=== PATIENT | female | born 1940 | race Caucasian/White ===

== ENCOUNTER 2018-07-23 22:14 | Emergency (ER) | payer OTHER, MEDICAID ==
[~2018-07-23] VITALS: Ht 149.9 cm; Wt 40.8 kg
--- NOTE | 2018-07-23 22:16 | NUR ---
PT BIBRA FROM HOME C/O LOWER BACK PAIN AND POSSIBLE UNWITNESSED SYNCOPE. -TRAUMA. BS 135, PER EMS. NAD NOTED. RESP EVEN AND UNLABORED. PT ON MONITOR IN BED 8. WILL CONTINUE TO MONITOR.
[2018-07-23] MEDS ORDERED: IV NS 0.9% 1,000 ML BAG IV ONE (22:30)
--- NOTE | 2018-07-23 22:30 | NUR ---
PHLEB AT BEDSIDE FOR LAB DRAW
--- NOTE | 2018-07-23 22:33 | NUR ---
TECH AT BEDSIDE FOR EKG
[2018-07-23 22:45] LABS: BASOPHILS % (AUTO) 0.2 % (0.0-2.0); EOSINOPHILS % (AUTO) 0.1 % (0.0-6.0); HEMATOCRIT 43 % (33-45); HEMOGLOBIN 14.2 g/dL (11.5-14.8); LYMPHOCYTES # (AUTO) 3.5 /CMM (0.8-4.8); LYMPHOCYTES % (AUTO) 33.7 % (20.0-44.0); MEAN CORPUSCULAR HGB CONC 33 g/dl (31.0-36.0); MEAN CORPUSCULAR VOLUME 97 fL (82-100); MONOCYTES # (AUTO) 0.4 /CMM (0.1-1.30); MONOCYTES % (AUTO) 3.6 % (2.0-12.0); NEUTROPHILS # (AUTO) 6.5 /CMM (1.8-8.9); NEUTROPHILS % (AUTO) 62.4 % (43.0-81.0); PLATELET COUNT (AUTO) 137 /CMM (150-450); RED BLOOD CELL COUNT(AUTO) 4.46 MIL/uL (4.0-5.2); WHITE BLOOD COUNT (AUTO) 10.4 K/uL (4.3-11.0)
--- NOTE | 2018-07-23 22:46 | NUR ---
DAUGHTER AT BEDSIDE
[2018-07-23 22:52] LABS: CALCIUM, SERUM 9.5 mg/dL (8.5-10.1); CARBON DIOXIDE 29 mmol/L (21-32); CHLORIDE 106 mmol/L (98-107); CREATININE 1.3 mg/dL (0.6-1.3); GLUCOSE 146 mg/dL (74-106); POTASSIUM 4.9 mmol/L (3.5-5.1); SODIUM SERUM 141 mmol/L (136-145); UREA NITROGEN, BLOOD 32 mg/dL (7-18)
[2018-07-23 22:59] LABS: ALANINE AMINOTRANSFERASE 20 U/L (12-78); ALKALINE PHOSPHATASE 130 U/L (46-116); ASPARTATE AMINOTRANSFERASE 29 U/L (15-37); BILIRUBIN,DIRECT 0.2 mg/dL (0.0-0.2); BILIRUBIN,TOTAL 0.5 mg/dL (0.2-1.0); TOTAL PROTEIN, SERUM 7.2 g/dL (6.4-8.2)
--- NOTE | 2018-07-23 23:23 | NUR ---
PT TAKEN TO RADIOLOGY VIA REJI
--- NOTE | 2018-07-24 00:14 | NUR ---
CALLED [facility] SPOKE TO SEMAJ, WAITING FOR MD CALL BACK
--- NOTE | 2018-07-24 00:22 | NUR ---
PHLEB AT BEDSIDE FOR BLOOD CULTURES
[2018-07-24] MEDS ORDERED: LEVOFLOXACIN 750 MG /D5W 150ML PIGGYBACK IV ONE (00:30)
[2018-07-24] MEDS ORDERED: AZTREONAM 1 G in IV NS 0.9% 100 ML IV ONE (00:30)
[2018-07-24] MEDS ORDERED: AZTREONAM 1 G VIAL ONE (00:36)
[2018-07-24] MEDS ORDERED: LEVOFLOXACIN 750 MG /D5W 150ML 150 ML IV ONE (00:37)
[2018-07-24 02:23] LABS: APPEARANCE,URINE CLEAR (CLEAR); BILIRUBIN,URINE NEGATIVE (NEGATIVE); BLOOD, URINE NEGATIVE Ery/uL (NEGATIVE); COLOR,URINE YELLOW (YELLOW); KETONES,URINE NEGATIVE (NEGATIVE); LEUKOCYTE ESTERASE ,URINE NEGATIVE (NEGATIVE); NITRITE, URINE NEGATIVE (NEGATIVE); PH,URINE 6.5 (5.0-8.0); PROTEIN,URINE NEGATIVE (NEGATIVE); UGLUCOSE NEGATIVE (NEGATIVE)
[2018-07-24 02:32] LABS: BACTERIA,URINE Few /HPF (None Seen); RBC,URINE 0-2 /HPF (0-2); SQUAMOUS EPITHELIAL CELL,UR Few /HPF (None Seen); WBC,URINE 0-2 /HPF (0-3)
--- NOTE | 2018-07-24 02:32 | NUR ---
Patient is resting comfortably in bed with eyes closed. Easily aroused. VSS. DAUGHTER AT BEDSIDE.
--- NOTE | 2018-07-24 04:32 | NUR ---
SPOKE WITH CHIKA FROM [facility]; TRANSFER INFORMATION: TRANSFER TO [facility] ED ACCEPTING MD: DR. MUNROE NUMBER FOR REPORT:
--- NOTE | 2018-07-24 06:21 | NUR ---
ATTEMPTED TO GIVE REPORT. NO ANSWER.
--- NOTE | 2018-07-24 06:29 | NUR ---
REPORT GIVEN TO ADRIANA PERALTA AT [facility] FOR [facility]
--- NOTE | 2018-07-24 07:18 | NUR ---
REPORT GIVEN TO MULUGETA MCCURDY RN FOR [facility]
--- NOTE | 2018-07-24 07:22 | NUR ---
RECEIVED REPORT ADRIANA FORD FOR [facility]. PT IS FOR TRANSFER TO [place], PT IS AAOX3 UPPER [place]BI[place] SPEAKING ONLY, NOT IN RESPIRATORY DISTRESS, V/S STABLE, AWAITING AMBULANCE.
--- NOTE | 2018-07-24 08:06 | NUR ---
REPORT GIVEN TO EMT FOR TRANSFER [facility].
--- NOTE | 2018-07-24 08:08 | NUR ---
CALLED PT DAUGHTER GRZEGORZ FOR PT TRANSFER TO [facility].
[2018-07-24 08:35] VITALS: BP 112/68
--- NOTE | 2018-07-24 08:36 | NUR ---
Kofi richard in ED - 07/24/18 at 0836 by BIA Patient discharged to home in stable condition. Written and verbal after care instructions given. Patient verbalizes understanding of instruction.
== END 2018-07-24 08:46 | disposition short-term general hospital (02) ==
LOC: ER 22:20
DX: I50.9 Heart failure, unspecified (principal); J18.9 Pneumonia, unspecified organism; G89.29 Other chronic pain; M54.9 Dorsalgia, unspecified; G30.9 Alzheimer's disease, unspecified; I10 Essential (primary) hypertension; I70.0 Atherosclerosis of aorta; I13.0 Hypertensive heart and chronic kidney disease with heart failure and stage 1 through stage 4 chronic kidney disease, or unspecified chronic kidney disease; N18.9 Chronic kidney disease, unspecified; F02.80 Dementia in other diseases classified elsewhere, unspecified severity, without behavioral disturbance, psychotic disturbance, mood disturbance, and anxiety; E03.9 Hypothyroidism, unspecified; G47.00 Insomnia, unspecified; R55 Syncope and collapse; Z86.73 Personal history of transient ischemic attack (TIA), and cerebral infarction without residual deficits; Z88.6 Allergy status to analgesic agent
CPT/HCPCS: 36415 ×2; 70450; 71045; 80048; 80076; 81001; 82962; 83605 ×2; 83880; 84484; 85025; 85730; 86850; 87040 ×2; 93005; 96361; 96365; 96368; 99285; A4606; J1956; J3490; J7030 ×2; 81000-TC